=== PATIENT | female | born 1985 | race Caucasian/White ===

== ENCOUNTER 2016-04-05 14:39 | Emergency (ER) | payer OTHER ==
[~2016-04-05] VITALS: Ht 170.2 cm; Wt 81.0 kg
[~2016-04-05 14:39] MED LIST: CEFDINIR300 MG PO; DILAUDID2 MG PO; HYDROCODON-ACE1 EAC7 PO; IBUPROFEN800 MG PO; KEFLEX500 MG PO; LEVAQUIN500 MG PO; Levaquin PO; MINIVELLE1 EAC1 TD; MOTRIN600 MG PO; MOTRIN800 MG PO; NAPROSYN500 MG PO; NO HOME MEDS; NORCO 5/3251 TABLET PO; NORCO 7.5/321 TABLET PO; PERCOCET 5/31 TABLET PO; PHENERGAN25 MG PR; PROMETHAZINE HC25 M1 PO; Percocet 5/325,Endoc PO; PriLOSEC PO; TYLENOL EXTRA500 MG PO; VALIUM5 MG PO; ZITHROMAX Z-PA250 MG PO; ZOFRAN4 MG PO
[2016-04-05] MEDS ORDERED: FLEXERIL10 MG PO (19:55)
[2016-04-05] MEDS ORDERED: MOBIC7.5 MG PO (19:55)
[2016-04-05 20:23] VITALS: BP 114/70
== END 2016-04-05 20:25 | disposition home or self-care (01) ==
LOC: EME 14:39
DX: S16.1XXA Strain of muscle, fascia and tendon at neck level, initial encounter (principal); S40.022A Contusion of left upper arm, initial encounter; M62.830 Muscle spasm of back; W10.9XXA Fall (on) (from) unspecified stairs and steps, initial encounter
CPT/HCPCS: 72040; 99281; 99284